=== PATIENT | male | born 1965 | race Caucasian/White ===

== ENCOUNTER 2020-09-14 07:00 | Outpatient (CLI) | payer OTHER ==
--- NOTE | 2020-09-14 16:08 | XRAY Report ---
PROCEDURE: Wrist 3 View LT INDICATIONS: L WRIST PX TECHNIQUE: 3 views of the wrist were acquired. COMPARISON: None FINDINGS: Bones: No fractures or dislocations. No suspicious bony lesions. Scaphoid view: Scaphoid is grossly intact. Soft tissues: No suspicious soft tissue calcifications. IMPRESSION: Unremarkable radiographic examination of left wrist. Reviewed by: Chris Quiros MD on 09/14/2020 3:07 PM BREANNE Approved by: Chris Quiros MD on 09/14/2020 3:07 PM BREANNE Station ID: [id number]
== END 2020-09-14 23:59 | disposition home or self-care (01) ==
LOC: DI.N 07:00
PROVIDERS: ATTEND Family Medicine
DX: M25.532 Pain in left wrist (principal)